=== PATIENT | female | born 1995 | race Caucasian/White ===

== ENCOUNTER 2018-01-24 15:54 | Emergency (ER) | payer BC, OTHER ==
[2018-01-24 16:41] VITALS: BP 125/62
[2018-01-24] MEDS ORDERED: predniSONE TAB* 20 MG PO ONE (17:06)
[2018-01-24] MEDS ORDERED: Ibuprofen TAB* 400 MG PO ONE (17:34)
--- NOTE | 2018-01-24 17:44 | UC ---
Throat Pain/Nasal Caesar HPI - HPI Summary HPI Summary: Pt presents with c/o fever, chills, neck pain, sore throat, right hand swelling and redness at metacarpal phalangeal joint 2-5. Pt denies hx of gout or injury. - History of Current Complaint Chief Complaint: UCRespiratory Stated Complaint: FEVER,COUGH,ACHES Time Seen by Provider: 01/24/18 16:41 Hx Obtained From: Patient Hx Last Menstrual Period: 01/02 ?: No Onset/Duration: Sudden Onset, Lasting Days, Still Present Severity: Moderate Pain Intensity: 6 Cough: None Associated Signs & Symptoms: Positive: Dysphagia, Fever - Epiglottits Risk Factors Epiglottis Risk Factors: Negative - Allergies/Home Medications Allergies/Adverse Reactions: Allergies Allergy/AdvReac Type Severity Reaction Status Date / Time environmental Allergy Sneezing Uncoded 01/24/18 16:42 Home Medications: Home Medications Acetaminophen [Acetaminophen Extra Strength] 1,000 mg PO BID PRN 01/24/18 [ History Confirmed 01/24/18] Escitalopram Oxalate [Lexapro 20 mg] 20 mg PO DAILY 01/24/18 [History Confirmed 01/24/18] Levocetirizine Dihydrochloride [Xyzal] 5 mg PO DAILY 01/24/18 [History Confirmed 01/24/18] diphenhydrAMINE HCl [Benadryl Allergy] 25 mg PO DAILY PRN 01/24/18 [History Confirmed 01/24/18] PMH/Surg Hx/FS Hx/Imm Hx Previously Healthy: Yes Endocrine History: Thyroid Disease - Surgical History Surgical History: Yes Surgery Procedure, Year, and Place: WISDOM TEETH EXTRACTION - Family History Known Family History: Positive: Cardiac Disease - Social History Occupation: Employed Full-time, Student Lives: With Family Alcohol Use: Occasionally Substance Use Type: None Smoking Status (MU): Never Smoked Tobacco Have You Smoked in the Last Year: No Review of Systems Constitutional: Fever, Chills, Fatigue Skin: Rash, Other - urticaria Eyes: Negative ENT: Sore Throat Respiratory: Negative Cardiovascular: Negative Gastrointestinal: Negative Genitourinary: Negative Motor: Negative Neurovascular: Negative Musculoskeletal: Myalgia - neck pain Neurological: Negative Psychological: Negative Is Patient Immunocompromised?: No All Other Systems Reviewed And Are Negative: Yes Physical Exam Triage Information Reviewed: Yes Appearance: Well-Appearing Vital Signs: Initial Vital Signs Temp 100.7 F 01/24/18 16:27 Pulse 86 01/24/18 16:27 Resp 20 01/24/18 16:27 BP 125/62 01/24/18 16:27 Pulse Ox 99 01/24/18 16:27 Vital Signs Reviewed: Yes Eye Exam: Normal ENT Exam: Other ENT: Positive: Tonsillar swelling, Tonsillar exudate Dental Exam: Normal Neck: Positive: Tenderness @ - generalized neck, Enlarged Nodes @ Respiratory Exam: Normal Respiratory: Positive: Normal breath sounds Cardiovascular Exam: Normal Musculoskeletal: Positive: Edema @ - right hand, distal metacarpal, phalangeal joints 2-5, erythema, swelling, Neurological Exam: Normal Psychological Exam: Normal Skin Exam: Other - scattered urticaria Diagnostics - Laboratory Diagnostic Studies Completed/Ordered: rapid strep: postitive Throat Pain/Nasal Course/Dx - Course Course Of Treatment: I discussed with the pt my concern for gout and pt verbalized understanding and agreed to plan of care. - Differential Dx/Diagnosis Differential Diagnosis/HQI/PQRI: Pharyngitis, Tonsillitis Provider Diagnoses: strep throat. urticaria Discharge - Sign-Out/Discharge Documenting (check all that apply): Patient Departure All imaging exams completed and their final reports reviewed: No Studies - Discharge Plan Condition: Stable Disposition: HOME Prescriptions: Penicillin VK 500 MG TAB(NF) [Penicillin VK 500 mg Tab] 500 mg PO Q6H #30 tab Patient Education Materials: Urticaria (ED), Strep Throat (ED) Forms: *Work Release Referrals: Mariola Nick MD [Primary Care Provider] - If Needed - Billing Disposition and Condition Condition: STABLE Disposition: Home Attestation Statement User Type: Provider - I was available for consult. This patient was seen by the JUNITO. The patient was not presented to, seen by, or examined by me. -Kiana
== END 2018-01-24 17:57 | disposition home or self-care (01) ==
LOC: UCCORT 15:54
DX: J02.0 Streptococcal pharyngitis (principal); L50.9 Urticaria, unspecified
CPT/HCPCS: 87651; 99202; A9270-GY; G0463; J7512

== ENCOUNTER 2018-01-26 07:04 | Emergency (ER) | payer OTHER ==
[2018-01-26 07:27] VITALS: BP 121/70
--- NOTE | 2018-01-26 08:39 | UC ---
Throat Pain/Nasal Caesar HPI - HPI Summary HPI Summary: 22 year old female with facial swelling . diagnosed with strep throat on Tuesday , placed on PCN VK. States L side of mouth swelling today. Pt did have hives on hands and arms on Tuesday, but now has hives on buttock area. Also with abd discomfort. Denies any SOB. No fever. Had some nausea last night/ no apetite and vomit this am . Sore throat gone. Lymph node pain gone. no dental pain. no fever. no shortness of breath. no wheeze. no throat closing. can eat and drink without problems. facial swelling is painful and warm and itchy. no pain meds taken so far. swelling started this AM around 3 am . [ End ] - History of Current Complaint Chief Complaint: UCGeneralIllness Stated Complaint: FACIAL SWELLING Time Seen by Provider: 01/26/18 08:07 Hx Obtained From: Patient Hx Last Menstrual Period: 01/02/18 Pain Intensity: 3 Associated Signs & Symptoms: Positive: Negative - Allergies/Home Medications Allergies/Adverse Reactions: Allergies Allergy/AdvReac Type Severity Reaction Status Date / Time ethinyl estradiol Allergy Hives Verified 01/26/18 07:19 [From Ortho Tri-Cyclen LO (28)] norgestimate Allergy Hives Verified 01/26/18 07:19 [From Ortho Tri-Cyclen LO (28)] environmental Allergy Sneezing Uncoded 01/26/18 07:19 PMH/Surg Hx/FS Hx/Imm Hx Previously Healthy: Yes - Surgical History Surgical History: Yes Surgery Procedure, Year, and Place: WISDOM TEETH EXTRACTION - Family History Known Family History: Positive: Cardiac Disease - Social History Occupation: Employed Full-time, 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 Alcohol Use: Occasionally Substance Use Type: None Smoking Status (MU): Never Smoked Tobacco Have You Smoked in the Last Year: No Review of Systems Constitutional: Negative Skin: Rash Eyes: Negative ENT: Negative, Other - faical swelling Respiratory: Negative Cardiovascular: Negative Gastrointestinal: Negative Genitourinary: Negative Motor: Negative Neurovascular: Negative Musculoskeletal: Negative Neurological: Negative Psychological: Negative Is Patient Immunocompromised?: No All Other Systems Reviewed And Are Negative: Yes Physical Exam Triage Information Reviewed: Yes Appearance: Well-Appearing, No Pain Distress, Well-Nourished Vital Signs: Initial Vital Signs Temp 98.7 F 01/26/18 07:22 Pulse 63 01/26/18 07:22 Resp 16 01/26/18 07:22 BP 121/70 01/26/18 07:22 Pulse Ox 97 01/26/18 07:22 Vital Signs Reviewed: Yes Eye Exam: Normal ENT Exam: Normal Dental Exam: Normal Dental: Positive: Other: - redness and swelling / induration left lower jaw. no discharge. no rash. small superficial break in skin / ulceration left lower gum line just superior to the canines.. Negative: Percussion Tenderness @ Neck exam: Normal Neck: Positive: 1 Respiratory Exam: Normal Cardiovascular Exam: Normal Abdominal Exam: Normal Musculoskeletal Exam: Normal Neurological Exam: Normal Psychological Exam: Normal Skin Exam: Normal Skin: Positive: rashes - scattered maculopapular / urticarial rash left forearm 1x1, on right buttock small patch per patient Throat Pain/Nasal Course/Dx - Course Course Of Treatment: for swelling / ? allergic intolerance offer steroid. for the swelling ? early abcess so will start clinda and stop PCN if any concern for allergic reaction. no anaphylaxis Sx in the slightest. discussed imaging but at this time pt wants to try NSAIDs, ice pack, medrol and new Abx and if Sx worsen she wants to go to ED for further eval. she of note had a small rash when here previously as well. does not appear to be typical drug rash. she is aware of S/S of anaphylaxis and will seek care if needed. if redness darkens or worsens we discussed possibility of cellulitis and go to ED for further work up and meds and she will do so if needed but not at that point at this time. she is aware of SE of abx and steroids Assessment/Plan: strep throat. facial swelling - Differential Dx/Diagnosis Provider Diagnoses: strep throat. facial swelling Discharge - Sign-Out/Discharge Documenting (check all that apply): Patient Departure All imaging exams completed and their final reports reviewed: No Studies - Discharge Plan Condition: Good Disposition: HOME Prescriptions: Clindamycin Cap(NF) [Clindamycin Cap 300 mg Cap(NF)] 300 mg PO TID 10 Days #30 cap methylPREDNISolone [Medrol Dosepak 4 MG*] 0 mg PO .SEE SUSY INSTRUCTION #1 tab Patient Education Materials: Strep Throat (ED) Referrals: Mariola Nick MD [Primary Care Provider] - 4 Days Additional Instructions: As we discussed with the constellation of symptoms we will change your antibiotics to make sure the strep is treated but that also an abscess in your mouth does not worsen. If your symptoms worsen please seek medical care and go to the emergency room. - Billing Disposition and Condition Condition: GOOD Disposition: Home
== END 2018-01-26 08:39 | disposition home or self-care (01) ==
LOC: UCCORT 07:04
DX: J02.0 Streptococcal pharyngitis (principal); R22.0 Localized swelling, mass and lump, head; Z88.8 Allergy status to other drugs, medicaments and biological substances
CPT/HCPCS: 99212; G0463